=== PATIENT | female | born 1995 | race Caucasian/White ===

== ENCOUNTER 2017-07-18 08:08 | Emergency (ER) | payer OTHER ==
[~2017-07-18] VITALS: Ht 152.4 cm; Wt 65.3 kg
[2017-07-18 08:15] VITALS: TEMP 36.4; Ht 152.4 cm; Wt 65.3 kg
[2017-07-18] MEDS ORDERED: SODIUM CHLORIDE 0.9% 1000ML 1,000 ML IV STA (08:20)
[2017-07-18] MEDS ORDERED: ONDANSETRON INJ 2 MG/ML 2 ML VIAL IV STA (08:20)
[2017-07-18 08:55] LABS: BASO % 0.3 %; BASO ABS # 0.05 K/uL (0-0.2); COMPLETE YES; EOS % 0.1 %; IG% 0.3 %; LYMPH % 6.7 %; LYMPH ABS # 1.16 K/uL (1.2-3.4); MEAN CELL VOLUME 85.2 fL (80-100); MEAN CORPUSCULAR HEMOGLOBIN 28.1 pg (25-34); MEAN CORPUSCULAR HGB CONC 32.9 g/dl (32-36); MEAN PLATELET VOLUME 9.8 fL (7.4-10.4); MONO % 2.9 %; NEUT % 89.7 %; PLATELET COUNT 360 K/uL (130-400); RED BLOOD COUNT 4.81 M/uL (4.2-5.4); WHITE BLOOD COUNT 17.33 K/uL (4.8-10.8)
[2017-07-18] MEDS ORDERED: LEVO25TA PO (09:13)
[2017-07-18] MEDS ORDERED: OMEG10007 PO (09:13)
[2017-07-18] MEDS ORDERED: MULT-506 PO (09:13)
[2017-07-18] MEDS ORDERED: BCPILLS PO (09:13)
[2017-07-18 09:16] LABS: ALT/SGPT 30 U/L (12-78); BLOOD UREA NITROGEN 16 mg/dl (7-18); BUN/CREATININE RATIO 16.6 (10-20); CALCIUM 8.8 mg/dl (8.5-10.1); CARBON DIOXIDE 26 mmol/L (21-32); CHLORIDE 107 mmol/L (98-107); CREATININE 0.98 mg/dl (0.60-1.20); GLUCOSE 108 mg/dl (70-99); POTASSIUM 4.2 mmol/L (3.5-5.1); SODIUM 139 mmol/L (136-145)
[2017-07-18 09:19] LABS: ALKALINE PHOSPHATASE 101 U/L (45-117); AST/SGOT 10 U/L (15-37)
[2017-07-18 09:49] LABS: URINE APPEARANCE TURBID (CLEAR); URINE COLOR DK YELLOW; URINE EPITHELIAL CELL AUTO >30 /lpf (0-5); URINE NITRITE NEG (NEG); URINE SPECIFIC GRAVITY 1.027 (1.000-1.030); UROBILINOGEN NEG (NEG); ZZUR CULT IF INDIC CLEAN CATCH YES
[2017-07-18 10:13] LABS: MANUAL MICROSCOPIC REQUIRED? NO; REVIEW REQ? YES; URINE BILIRUBIN NEG (NEG)
[2017-07-18 10:14] LABS: URINE MUCUS PRESENT (NONE PRSENT)
[2017-07-18 10:15] LABS: URINE PATH CASTS 0-3 GRANULAR CASTS /lpf (0)
--- NOTE | 2017-07-18 10:32 | DIAGNOSTIC IMAGING REPORT ---
CT SCAN OF THE ABDOMEN AND PELVIS WITHOUT IV CONTRAST CLINICAL HISTORY: Hematuria. COMPARISON STUDY: No priors. TECHNIQUE: CT scan of the abdomen and pelvis is performed from the lung bases to the proximal femora. Images are reviewed in the axial, sagittal, and coronal planes. IV contrast was not administered for this examination. A dose lowering technique was utilized adhering to the principles of ALARA. CT DOSE: 592.77 mGy.cm FINDINGS: Lung bases: The heart is normal in size and without pericardial effusion. The lung bases are clear. Liver: The unenhanced liver is normal in size, contour, and attenuation. There is no intrahepatic biliary ductal dilatation. Gallbladder: Unremarkable. Spleen: Normal in size and attenuation. Pancreas: Unremarkable. Adrenal glands: Unremarkable. Kidneys: The unenhanced kidneys are normal in size and without hydronephrosis. There are no renal calculi identified. There is no evidence of contour deforming renal mass lesion. Abdominal vasculature: The abdominal aorta is normal in course and caliber. Bowel: No bowel obstruction is seen. There is a long segment of thick-walled and edematous small bowel involving distal/terminal ileum. Mild perienteric stranding is noted. There is no pneumatosis intestinalis or portal venous gas. The appendix is mildly dilated measuring up to 8 mm. The suprasellar fluid. No para appendiceal inflammation is seen. Peritoneum: There is no intraperitoneal free air or abdominal ascites. There is a small fat-containing umbilical hernia. Lymphadenopathy: None. Pelvic viscera: Although decompressed, the bladder wall appears thickened. The uterus and adnexa are normal as visualized. Trace free fluid is seen in the cul-de-sac. Skeletal structures: No lytic or blastic lesions are seen. There are bilateral pars defects at L5. No anterolisthesis is seen at L5-S1. IMPRESSION: 1. Findings are consistent and nonspecific enteritis involving the distal/terminal ileum. This is likely on an infectious or inflammatory basis in this age group. Specifically, Crohn's disease could have this appearance. Clinical correlation will be required. 2. The appendix is mildly distended measuring 3 mm, but otherwise is normal in appearance. There is no periappendiceal inflammation and acute appendicitis is considered unlikely. 3. No renal calculi are identified. 4. Mild circumferential bladder wall thickening is suggested. Correlation with clinical findings and urinalysis will be required. 5. There is trace free fluid in the cul-de-sac, likely physiologic limits. Electronically signed by: Luis Chisholm M.D. 07/18/2017 10:31 AM Dictated Date/Time: 07/18/2017 10:21 AM
--- NOTE | 2017-07-18 11:02 | EMERGENCY ROOM VISIT NOTE ---
ED Visit Note First contact with patient: 08:10 21-year-old female with diarrhea was fully evaluated by Mariana mckeon PA-C. Please see her note. I also independently evaluated the patient. My examination was soft and nontender she does not appear to be in distress. Patient appears to have a urinary tract infection and additionally dehydrated. The patient was given IV fluids in addition to oral rehydration. The patient will be discharged on an antibiotic. She will be encouraged to continue pushing fluids.
[2017-07-18] MEDS ORDERED: NITROFURANTOIN MONOHYDRATE 100 MG CAP PO ONE (11:15)
[2017-07-18] MEDS ORDERED: ONDA4TAB10 SL (11:18)
[2017-07-18] MEDS ORDERED: NITR-5 PO (11:18)
--- NOTE | 2017-07-18 11:20 | EMERGENCY ROOM VISIT NOTE ---
History First contact with patient: 08:10 Chief Complaint: GI ASSESSMENT Stated Complaint: ILLNESS Nursing Triage Summary: pt arrives via EMS. Mother states that the pt appeared pale, was flailing her arms around and then had an abrupt onset of diarrhea. Mother states that this happened in the past and pt was diagnosed with dehydration. Mother denies seizure history. Pt denies complaints of pain. Last period 2 weeks ago, on BCP. Hx of Down's Syndrome. History of Present Illness The patient is a 21 year old female with Down syndrome who presents to the Emergency Room via EMS with complaints of nausea vomiting and diarrhea. The mother states that early this morning the patient started looking very pale. She then had an episode of nausea and vomiting and then she started flailing her arms and then went to the bathroom and had loose bowel movement which lasted for several minutes. The patient denies any chest pain, shortness of breath. Currently she denies any abdominal pain. She does admit to some nausea. The mother states that this has happened in the past and she was diagnosed with dehydration. She does have a history of seizure disorder and Down's syndrome. They are visiting here from out of town. Her last menstrual period started last Thursday and ended 4 days ago. Review of Systems 10 system review was performed and was negative unless stated otherwise history of present illness. Past Medical/Surgical History Down syndrome, hypothyroidism, seizure disorder Social History Smoking Status: Never Smoker Alcohol Use: none Drug Use: none Marital Status: single Housing Status: lives with family Current/Historical Medications Scheduled Control Pills ( Control Pills), 1 TAB PO DAILY Fish Oil ([place]-3), 1 CAP PO DAILY Levothyroxine Sodium (Synthroid), 25 MCG PO DAILY Multivitamin (Multivitamin), 1 TAB PO DAILY Physical Exam Vital Signs Date Time Temp Pulse Resp B/P (MAP) Pulse Ox O2 Delivery O2 Flow Rate FiO2 07/18/17 09:17 72 16 101/65 98 Room Air 07/18/17 08:15 36.4 74 18 110/55 97 Room Air Physical Exam GENERAL: 21-year-old white female appears in no acute distress. MENTAL Status: Alert and oriented 3. MOUTH: Mucosa is slightly dry. NECK: Supple, no lymphadenopathy noted. No carotid bruits noted. LUNGS: Clear auscultation without wheezes rales or rhonchi. CARDIAC: Regular rate and rhythm without murmur. Pulses is full and equal throughout. BACK: No CVA tenderness noted. ABDOMEN: Positive bowel sounds all 4 quadrants. Soft, mild tenderness palpation in the epigastric region otherwise nontender to palpation without organomegaly or masses. EXTREMITIES: No cyanosis or edema noted. Medical Decision & Procedures ER Provider Diagnostic Interpretation: CT SCAN OF THE ABDOMEN AND PELVIS WITHOUT IV CONTRAST CLINICAL HISTORY: Hematuria. COMPARISON STUDY: No priors. TECHNIQUE: CT scan of the abdomen and pelvis is performed from the lung bases to the proximal femora. Images are reviewed in the axial, sagittal, and coronal planes. IV contrast was not administered for this examination. A dose lowering technique was utilized adhering to the principles of ALARA. CT DOSE: 592.77 mGy.cm FINDINGS: Lung bases: The heart is normal in size and without pericardial effusion. The lung bases are clear. Liver: The unenhanced liver is normal in size, contour, and attenuation. There is no intrahepatic biliary ductal dilatation. Gallbladder: Unremarkable. Spleen: Normal in size and attenuation. Pancreas: Unremarkable. Adrenal glands: Unremarkable. Kidneys: The unenhanced kidneys are normal in size and without hydronephrosis. There are no renal calculi identified. There is no evidence of contour deforming renal mass lesion. Abdominal vasculature: The abdominal aorta is normal in course and caliber. Bowel: No bowel obstruction is seen. There is a long segment of thick-walled and edematous small bowel involving distal/terminal ileum. Mild perienteric stranding is noted. There is no pneumatosis intestinalis or portal venous gas. The appendix is mildly dilated measuring up to 8 mm. The suprasellar fluid. No para appendiceal inflammation is seen. Peritoneum: There is no intraperitoneal free air or abdominal ascites. There is a small fat-containing umbilical hernia. Lymphadenopathy: None. Pelvic viscera: Although decompressed, the bladder wall appears thickened. The uterus and adnexa are normal as visualized. Trace free fluid is seen in the cul-de-sac. Skeletal structures: No lytic or blastic lesions are seen. There are bilateral pars defects at L5. No anterolisthesis is seen at L5-S1. IMPRESSION: 1. Findings are consistent and nonspecific enteritis involving the distal/terminal ileum. This is likely on an infectious or inflammatory basis in this age group. Specifically, Crohn's disease could have this appearance. Clinical correlation will be required. 2. The appendix is mildly distended measuring 3 mm, but otherwise is normal in appearance. There is no periappendiceal inflammation and acute appendicitis is considered unlikely. 3. No renal calculi are identified. 4. Mild circumferential bladder wall thickening is suggested. Correlation with clinical findings and urinalysis will be required. 5. There is trace free fluid in the cul-de-sac, likely physiologic limits. Electronically signed by: Luis Chisholm M.D. Laboratory Results 07/18/17 08:35 Red Blood Count 4.81, Mean Corpuscular Volume 85.2, Mean Corpuscular Hemoglobin 28.1, Mean Corpuscular Hemoglobin Concent 32.9, Mean Platelet Volume 9.8, Neutrophils (%) (Auto) 89.7, Lymphocytes (%) (Auto) 6.7, Monocytes (%) (Auto) 2.9, Eosinophils (%) (Auto) 0.1, Basophils (%) (Auto) 0.3, Neutrophils # (Auto) 15.54, Lymphocytes # (Auto) 1.16, Monocytes # (Auto) 0.51, Eosinophils # (Auto) 0.02, Basophils # (Auto) 0.05 07/18/17 08:35 Test 07/18/17 08:35 07/18/17 09:30 White Blood Count 17.33 K/uL (4.8-10.8) Red Blood Count 4.81 M/uL (4.2-5.4) Hemoglobin 13.5 g/dL (12.0-16.0) Hematocrit 41.0 % (37-47) Mean Corpuscular Volume 85.2 fL (80-100) Mean Corpuscular Hemoglobin 28.1 pg (25-34) Mean Corpuscular Hemoglobin Concent 32.9 g/dl (32-36) Platelet Count 360 K/uL (130-400) Mean Platelet Volume 9.8 fL (7.4-10.4) Neutrophils (%) (Auto) 89.7 % Lymphocytes (%) (Auto) 6.7 % Monocytes (%) (Auto) 2.9 % Eosinophils (%) (Auto) 0.1 % Basophils (%) (Auto) 0.3 % Neutrophils # (Auto) 15.54 K/uL (1.4-6.5) Lymphocytes # (Auto) 1.16 K/uL (1.2-3.4) Monocytes # (Auto) 0.51 K/uL (0.11-0.59) Eosinophils # (Auto) 0.02 K/uL (0-0.5) Basophils # (Auto) 0.05 K/uL (0-0.2) RDW Standard Deviation 50.5 fL (36.4-46.3) RDW Coefficient of Variation 16.1 % (11.5-14.5) Immature Granulocyte % (Auto) 0.3 % Immature Granulocyte # (Auto) 0.05 K/uL (0.00-0.02) Anion Gap 6.0 mmol/L (3-11) Est Creatinine Clear Calc Drug Dose 75.9 ml/min Estimated GFR () 94.9 Estimated GFR (Non- 81.9 BUN/Creatinine Ratio 16.6 (10-20) Calcium Level 8.8 mg/dl (8.5-10.1) Total Bilirubin 0.2 mg/dl (0.2-1) Direct Bilirubin < 0.1 mg/dl (0-0.2) Aspartate Amino Transf (AST/SGOT) 10 U/L (15-37) Alanine Aminotransferase (ALT/SGPT) 30 U/L (12-78) Alkaline Phosphatase 101 U/L (45-117) Total Protein 7.6 gm/dl (6.4-8.2) Albumin 3.4 gm/dl (3.4-5.0) Lipase 133 U/L (73-393) Urine Color DK YELLOW Urine Appearance TURBID (CLEAR) Urine pH 5.0 (4.5-7.5) Urine Specific [place] 1.027 (1.000-1.030) Urine Protein TRACE (NEG) Urine Glucose (UA) NEG (NEG) Urine Ketones NEG (NEG) Urine Occult Blood 2+ (NEG) Urine Nitrite NEG (NEG) Urine Bilirubin NEG (NEG) Urine Urobilinogen NEG (NEG) Urine Leukocyte Esterase SMALL (NEG) Urine WBC (Auto) 10-30 /hpf (0-5) Urine RBC (Auto) 5-10 /hpf (0-4) Urine Hyaline Casts (Auto) 10-30 /lpf (0-5) Urine Epithelial Cells (Auto) >30 /lpf (0-5) Urine Bacteria (Auto) 2+ (NEG) Urine Pathogenic Casts 0-3 GRANULAR CASTS /lpf (0) Urine Mucus PRESENT (NONE PRSENT) Urine Yeast (Auto) (NONE PRSENT) Medications Administered Medications (Trade) Dose Ordered Sig/Blake Route Start Time Stop Time Status Last Admin Dose Admin Sodium Chloride 1,000 ml @ 999 mls/hr Q1H1M STAT IV 07/18/17 08:20 07/18/17 09:20 DC 07/18/17 08:43 999 MLS/HR Ondansetron HCl (Zofran Inj) 4 mg NOW STAT IV 07/18/17 08:20 07/18/17 08:22 DC 07/18/17 08:42 4 MG ED Course The patient was evaluated. IV access was obtained. The patient was given 1 L normal saline wide-open. She was given Zofran 4 mg IV. CBC and differential, renal profile, LFTs and lipase levels were ordered. Urinalysis dip revealed 250 blood. Urine was sent for urinalysis;. Due to the blood in the urine a CT stone study was ordered and interpreted by the radiologist as above with findings of mild possible enteritis of the terminal ileum slightly enlarged appendix but no evidence of acute appendicitis. No ureteral calculi were identified. Labs are reviewed. The patient's white count was elevated. This possibly is due to the vomiting. Metabolic profile was unremarkable. The patient's urine showed some white cells as well as blood and bacteria. There is a possibility of contamination but the patient will be prophylactically treated with Macrobid. The patient was given Macrobid milligrams by mouth while in the emergency room. The patient was independently evaluated by Dr. Renteria who agreed with treatment plan. The patient was given Gatorade and was able to keep Gatorade down. The patient was reevaluated on several occasions. She was feeling much better and was discharged home in stable condition. Medical Decision Differential diagnosis include UTI, gastroenteritis, ureteral calculi, pyelonephritis, acute appendicitis Impression Primary Impression: UTI (urinary tract infection) Additional Impression: Nausea vomiting and diarrhea Departure Information Dispostion Home / Self-Care Condition GOOD Prescriptions Ondasetron Odt (ZOFRAN ODT) 4 Mg Tab 4 MG SL Q6H for Nausea, #10 TAB Prov: Evelyn Houser, LEWIS 07/18/17 Nitrofurantoin Monohyd Macrocr (Macrobid) 100 Mg Cap 100 MG PO BID for 7 Days, #14 CAP Prov: Evelyn Houser PA-C 07/18/17 Forms HOME CARE DOCUMENTATION FORM, IMPORTANT VISIT INFORMATION Patient Instructions ED Nausea Vomiting, ED UTI Cystitis Female, My [facility] Additional Instructions Follow bland diet. Push fluids. Take Zofran as needed for nausea. Take Macrobid as prescribed. Call in 36 hours for urine culture results. If you experience any severe abdominal pain, uncontrolled nausea vomiting and diarrhea , fever return to the ER immediately. Problem Qualifiers Primary Impression: UTI (urinary tract infection) Urinary tract infection type: acute cystitis Hematuria presence: with hematuria Qualified Codes: N30.01 - Acute cystitis with hematuria
[2017-07-18 11:34] VITALS: BP 103/71; PULSE 70; O2SAT 97
== END 2017-07-18 11:34 | disposition home or self-care (01) ==
LOC: EDBD 08:08 → C.EDA 08:10
DX: N30.01 Acute cystitis with hematuria (principal); R11.2 Nausea with vomiting, unspecified; R19.7 Diarrhea, unspecified; Q90.9 Down syndrome, unspecified; E03.9 Hypothyroidism, unspecified; R56.9 Unspecified convulsions